=== PATIENT | female | born 1975 | race Caucasian/White ===

== ENCOUNTER 2017-02-18 06:49 | Emergency (ER) | payer OTHER ==
[~2017-02-18] VITALS: Ht 160 cm; Wt 75.8 kg
[~2017-02-18 06:49] MED LIST: PANTOPRAZOLE SO40 MG PO; PERCOCET 325 MG1 TA2 PO; PROAIR HFA0.09 MG/Ac; VALACYCLOVIR H500 M1 PO; XARELTO20 MG PO
[2017-02-18] MEDS ORDERED: GABAPENTIN300 M2 PO (07:03)
[2017-02-18] MEDS ORDERED: VALTREX500 M1 PO (07:03)
[2017-02-18] MEDS ORDERED: PROTONIX20 M1 PO (07:04)
--- NOTE | 2017-02-18 08:02 | RADIOLOGY REPORT ---
EXAMINATION: XR PORTABLE CHEST CLINICAL INFORMATION: Chest pain with history of DVT COMPARISON: None TECHNIQUE: Portable single view view of the chest was obtained. FINDINGS: Lung lewis are grossly clear here. No evidence of failure or infiltrate. There is no effusion. Cardiomegaly silhouette is within normal limits on this AP portable study. IMPRESSION: No acute finding portable chest
[2017-02-18 08:08] LABS: ABSOLUTE BASOPHIL COUNT 0.2 /CUMM (0.0-0.2); ABSOLUTE EOSINOPHIL COUNT 0.2 /CUMM (0.0-0.7); ABSOLUTE GRANULOCYTE CT 4.3 /CUMM (1.4-6.5); ABSOLUTE LYMPH COUNT 3.3 /CUMM (1.2-3.4); ABSOLUTE MONOCYTE COUNT 0.7 /CUMM (0.10-0.60); BASOPHIL % 1.8 % (0.0-2.0); EOSINOPHIL % 2.5 % (0-5); GRANULOCYTE % 49.6 % (42.2-75.2); HEMATOCRIT 39.9 % (37-47); MEAN CORPUSCULAR HGB 29.9 PG (27.0-31.0); MEAN CORPUSCULAR HGB CONC 33.3 G/DL (33.0-37.0); MEAN CORPUSCULAR VOLUME 89.9 FL (81.0-99.0); MEAN PLATELET VOLUME 9.2 FL (7.4-10.4); PLATELET COUNT 232 /CUMM (130-400); RBC DISTRIBUTION WIDTH 13.8 % (11.5-14.5); RED BLOOD CELL CT 4.44 /CUMM (4.20-5.40); WHITE BLOOD CELL COUNT 8.6 /CUMM (4.8-10.8)
[2017-02-18 08:37] LABS: PT 9.7 SEC (9.4-12.5)
--- NOTE | 2017-02-18 09:37 | ED CARDIAC/CP/PALPITATIONS ---
History of Present Illness General Chief Complaint: Chest Pain Stated Complaint: "PER PT CHEST PAIN, SOB" HX ASTHMA Source: patient, old records Exam Limitations: no limitations Vital Signs & Intake/Output Vital Signs & Intake/Output Vital Signs Date Time Temp Pulse Resp B/P B/P Pulse O2 O2 Flow FiO2 Mean Ox Delivery Rate 02/19 0856 98.1 55 18 104/62 98 Room Air 02/18 0759 98.4 02/18 0708 98 Room Air 02/18 0706 98.4 63 18 109/74 97 Room Air Allergies Coded Allergies: ketorolac (Intermediate, RASH 02/18/17) Reconcile Medications Gabapentin 300 MG CAPSULE 1 CAP PO TID NEUROPATHY (Reported) Pantoprazole Sodium (Protonix) 20 MG TABLET.DR 1 TAB PO DAILY GERD (Reported) Valacyclovir Hydrochloride (Valtrex) 500 MG TABLET 1 TAB PO DAILY (Reported ) Triage Note: TRIAGE: PATIENT REPORTS WOKE FROM SLEEP AT 0300 TODAY W/ SHRP CHEST PAIN, REPORTS "FEEL A LITTLE SHORT OF BREATH." HX PE. PATIENT DENIES N/V/D. ALSO REPORTING HX GERD, TAKES PROTONIX, REPORTING "I THOUGHT MAYBE IT WAS INDIGESTION BUT IT DIDN'T GO AWAY." NO ACUTE RESP DISTRESS NOTED. NOTED TO BE DRINKING COFFEE IN TRIAGE. EKG COMPLETED. Triage Nurses Notes Reviewed? yes Onset: Just prior to arrival Duration: hour(s):, constant, continues in ED Timing: recent history Quality/Severity: moderate, aching Location: substernal Radiation: jaw, shoulders Activities at Onset: rest, sleep Prior Chest Pain/Card Workup: no prior cardiac workup Modifying Factors: Worsens With: movement. Nitro Today/Relief: no nitro taken today Aspirin Today: no aspirin today Associated Symptoms: shortness of breath LMP (ages 10-50): unknown : No Patient currently breastfeeds: No HPI: Several hours prior to admission patient developed left-sided sharp chest pain occurring intermittently worse with respiration radiating to the jaw associated with shortness of breath. She denies fever chills nausea vomiting diarrhea abdominal pain headache dysuria rash bleeding. Past History Travel History Traveled to [place] past 21 day No Medical History Any Pertinent Medical History? 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 No Review of Systems Review of Systems Constitutional: Reports: no symptoms. EENTM: Reports: no symptoms. Respiratory: Reports: see HPI, cough, short of breath. Cardiovascular: Reports: see HPI, chest pain. GI: Reports: no symptoms. Genitourinary: Reports: no symptoms. Musculoskeletal: Reports: no symptoms. Skin: Reports: no symptoms. Neurological/Psychological: Reports: no symptoms. Hematologic/Endocrine: Reports: no symptoms. Immunologic/Allergic: Reports: no symptoms. All Other Systems: Reviewed and Negative Physical Exam Physical Exam General Appearance: well developed/nourished, alert, awake, anxious, moderate distress, obese Head: atraumatic, normal appearance Eyes: Bilateral: normal appearance, PERRL, EOMI. Ears, Nose, Throat: normal pharynx, normal ENT inspection Neck: normal inspection, supple, full range of motion, no midline tenderness Respiratory: chest non-tender, no respiratory distress, quiet respiration, lungs clear, decreased breath sounds Cardiovascular: regular rate/rhythm, normal peripheral pulses, norml femoral pulses equa Peripheral Pulses: 4+ carotid (R), 4+ carotid (L) Gastrointestinal: normal bowel sounds, soft, non-tender, no organomegaly Back: normal inspection, normal range of motion Extremities: normal inspection, normal capillary refill, normal range of motion, no edema Neurologic/Psych: no motor/sensory deficits, awake, alert, oriented x 3, normal gait, normal mood/affect, 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 Skin: intact, normal color, warm/dry Lymphatic: no anterior cervical katlin Core Measures ACS in differential dx? No Severe Sepsis Present: No Septic Shock Present: No Progress Differential Diagnosis: AMI, CHF/pulm edema, costochondritis, pneumonia, pulmonary embolism Plan of Care: Orders Procedure Date/time Status Add-on Test (ER Only) 02/18 0922 Active TROPONIN LEVEL 02/18 0757 Complete PROTHROMBIN TIME 02/18 07 Complete D-DIMER 02/18 07 Complete COMPREHENSIVE METABOLIC PANEL 02/18 0722 Complete CBC WITHOUT DIFFERENTIAL 02/18 0722 Complete EKG 02/18 0651 Active Laboratory Tests 02/18/17 0757: Anion Gap 9, Estimated GFR > 60, BUN/Creatinine Ratio 13.8, Glucose 87, Calcium 9.1, Total Bilirubin 0.6, AST 17, ALT 20, Alkaline Phosphatase 68, Troponin I < 0.01, Total Protein 6.9, Albumin 4.0, Globulin 2.9, Albumin/Globulin Ratio 1.4, PT 9.7, INR 0.92, D-Dimer 234 H, CBC w Diff NO MAN DIFF REQ, RBC 4.44, MCV 89.9 , MCH 29.9, RDW 13.8, MPV 9.2, Gran % 49.6, Lymphocytes % 38.3, Monocytes % 7.8, Eosinophils % 2.5, Basophils % 1.8, Absolute Granulocytes 4.3, Absolute Lymphocytes 3.3, Absolute Monocytes 0.7 H, Absolute Eosinophils 0.2, Absolute Basophils 0.2, PUBS MCHC 33.3 Diagnostic Imaging: Viewed by Me: Radiology Read, CT Scan. Discussed w/RAD: Radiology Read, CT Scan. Radiology Impression: 1. No evidence of pulmonary embolism. 2. Minimal pulmonary emphysema. 3. Subtle centrilobular/peribronchial opacities in both lungs could reflect presence of chronic respiratory bronchiolitis -- if patient has history of cigarette smoking. 4. The finding of reflux of contrast into the intrahepatic IVC and hepatic veins is of questionable significance. Although contrast reflux into the IVC can be seen in the setting of elevated right-sided cardiac pressures, there is no evidence of cardiomegaly, bowing of the interventricular septum, pulmonary embolism or pericardial disease. CXR Impression: no acute abnormality, no infiltrates, normal size heart Initial ED EKG: normal axis, normal intervals, normal p-waves, normal QRS complex, normal sinus rhythm, no ST T wave changes Prior EKG: unchanged Rhythm Strip: normal sinus rhythm Departure Departure Time of Disposition: 1115 Disposition: HOME OR SELF CARE Condition: Stable Clinical Impression Primary Impression: Bronchitis Secondary Impressions: Chest pain syndrome Referrals: DOUG SÁNCHEZ MD (PCP/Family) Departure Forms: Customer Survey General Discharge Information RELEASE- WORK Prescriptions: Current Visit Scripts Albuterol Sulfate (Proair Hfa) 2-4 PUF INH Q4-6 PRN PRN shortness of breath #1 INHAL Tramadol HCl (Ultram) 1-2 TAB PO Q6PRN PRN severe pain #30 TAB Amoxicillin 1 TAB PO BID #20 TAB Critical Care Note Critical Care Note Critical Care Time: non-applicable
--- NOTE | 2017-02-18 10:55 | CT SCAN REPORT ---
EXAMINATION: CT ANGIOGRAM OF THE CHEST WITH CONTRAST (CT PULMONARY ANGIOGRAM FOR PE) CLINICAL INFORMATION: Pleuritic chest pain. History of deep vein thrombosis. COMPARISON: CXR from 02/18/2017. Chest CT from 03/18/2013. TECHNIQUE: Prior to contrast administration, noncontrast localization images were obtained. Subsequently, multidetector volumetric imaging was performed from the thoracic inlet to below the diaphragms following the administration of 92 mL of Optiray 350 intravenous contrast. No contrast reaction reported. Sagittal, coronal, and MIP oblique sagittal reformatted images were obtained on the CT workstation, uploaded to PACS, and reviewed. Total exam dose-length product 360 mGy-cm FINDINGS: QUALITY OF STUDY/CONTRAST BOLUS: Satisfactory. PULMONARY ARTERIES: Pulmonary arteries are normal in caliber. No filling defects are identified in the main, lobar or segmental vessels. THORACIC AORTA: Thoracic aorta is normal in size. No intramural hematoma, aneurysm or dissection. LUNGS AND PLEURA: Trachea and central airways are widely patent and normal in caliber. There is mild wall thickening of bronchi in both lungs. There is minimal centrilobular and paraseptal emphysema. Also, lungs have slightly heterogeneous attenuation with subtle peribronchial/centrilobular opacities observed in both lungs.. If the patient has history of chronic cigarette smoking, then the possibility of chronic respiratory bronchiolitis secondary to cigarette smoking would be considered. No focal consolidation, interstitial edema, pleural effusion or pneumothorax. MEDIASTINUM: Normal heart size. No pericardial effusion. No evidence of septal bowing or right heart strain. The esophagus is unremarkable. The visualized portion of the thyroid gland is normal. LYMPHATICS: No pathologic sized axillary, hilar or mediastinal lymph nodes. UPPER ABDOMEN: There is reflux of contrast into the inferior vena cava and hepatic veins. Although this can be seen in the setting of elevated right-sided cardiac pressures, there is no evidence of cardiomegaly, bowing of the interventricular septum, pulmonary embolism or pericardial thickening. OSSEOUS STRUCTURES: No acute or suspicious osseous abnormality. IMPRESSION: 1. No evidence of pulmonary embolism. 2. Minimal pulmonary emphysema. 3. Subtle centrilobular/peribronchial opacities in both lungs could reflect presence of chronic respiratory bronchiolitis -- if patient has history of cigarette smoking. 4. The finding of reflux of contrast into the intrahepatic IVC and hepatic veins is of questionable significance. Although contrast reflux into the IVC can be seen in the setting of elevated right-sided cardiac pressures, there is no evidence of cardiomegaly, bowing of the interventricular septum, pulmonary embolism or pericardial disease.
[2017-02-18] MEDS ORDERED: ULTRAM50 M1 PO (11:21)
[2017-02-18] MEDS ORDERED: AMOXICILLIN875 M1 PO (11:21)
[2017-02-18] MEDS ORDERED: PROAIR HFA8.5 GM INH (11:21)
[2017-02-18 11:29] VITALS: BP 114/57
== END 2017-02-18 11:36 ==
LOC: ERH 06:49
PROVIDERS: Emergency Medicine
DX: J40 Bronchitis, not specified as acute or chronic (principal); R07.9 Chest pain, unspecified
CPT/HCPCS: 93005; 93010; 96374; J0131; Q9965